=== PATIENT | male | born 1985 | race Caucasian/White ===

== ENCOUNTER 2017-10-08 15:23 | Emergency (ER) | payer OTHER ==
--- NOTE | 2017-10-08 15:51 | EDM.PDOC ---
ED HPI GENERAL MEDICAL PROBLEM - General Chief Complaint: Upper Extremity Injury/Pain Stated Complaint: NUMBNESS IN RT HAND Time Seen by Provider: 10/08/17 15:41 Source of Information: Reports: Patient History Limitations: Reports: No Limitations - History of Present Illness INITIAL COMMENTS - FREE TEXT/NARRATIVE: Patient is a 32-year-old male who presents to the ED with intermittent numbness to the right fourth and fifth fingers. This occurred earlier this morning about 10 AM when he was working on a computer. States that he developed some pain along the inner aspect of his right elbow with it laying on the chair/desk. Noted some discomfort along the medial aspect of the forearm that radiated down into his fingers. Symptoms have improved with only slight discomfort noted to the right upper arm. Denies hitting it, swelling, rash, and/or bruising. He has no history of similar symptoms. At times he has felt like his right hand is slightly colder than his left. He has no history of Raynaud's. At this point all symptoms have almost completely resolved. Denies any additional complaints. He has no additional past medical history and currently taking no medications. Surgical history none. Right Upper Arm Pain Score (Numeric/FACES): 1 - Related Data Allergies Allergy/AdvReac Type Severity Reaction Status Date / Time No Known Allergies Allergy Verified 10/08/17 15:31 Home Meds: Home Meds . [No Known Home Meds] 10/08/17 [History] Past Medical History - Past Health History Medical/Surgical History: Denies Medical/Surgical History Social & Family History - Tobacco Use Smoking Status *Q: Never Smoker - Caffeine Use Caffeine Use: Reports: Energy Drinks, Soda - Recreational Drug Use Recreational Drug Use: No Review of Systems - Review of Systems Review Of Systems: ROS reveals no pertinent complaints other than HPI. ED EXAM, GENERAL - Physical Exam Exam: See Below Exam Limited By: No Limitations General Appearance: Alert, WD/WN, No Apparent Distress Ears: Hearing Grossly Normal Nose: Normal Inspection Throat/Mouth: Normal Voice, No Airway Compromise Neck: Normal Inspection, Supple Respiratory/Chest: No Respiratory Distress, No Accessory Muscle Use Cardiovascular: Normal Peripheral Pulses, Regular Rate, Rhythm, No Murmur Peripheral Pulses: 4+: Radial (L), Radial (R) Extremities: Normal Inspection, Normal Range of Motion, Non-Tender, No Pedal Edema Neurological: Alert, Oriented, CN II-XII Intact, Normal Cognition, No Motor/ Sensory Deficits Psychiatric: Normal Affect, Normal Mood Skin Exam: Warm, Dry, Intact, Normal Color, No Rash Course - Vital Signs Last Recorded V/S: Last Vital Signs Temp 98.0 F 10/08/17 15:34 Pulse 65 10/08/17 15:34 Resp 20 10/08/17 15:34 BP 141/96 H 10/08/17 15:34 Pulse Ox 100 10/08/17 15:34 - Re-Assessments/Exams Free Text/Narrative Re-Assessment/Exam: Suspect cause of discomfort was secondary to resting his elbow on a hard surface causing entrapment of the ulnar nerve causing paresthesias to his right fifth finger. With evaluation in the ED symptoms are almost gone. He has some slight tingling noted the fourth and fifth finger. No weakness or motor deficits noted. No additional testing required. Discharge instructions as documented. Departure - Departure Time of Disposition: 15:49 Disposition: Home, Self-Care 01 Condition: Good Clinical Impression: Irritation of ulnar nerve Qualifiers: Laterality: right Qualified Code(s): G56.21 - Lesion of ulnar nerve, right upper limb - Discharge Information Referrals: PCP,Not In Area [Primary Care Provider] - Forms: ED Department Discharge Additional Instructions: Refrain from any activities that cause worsening discomfort. Monitor for any changes. Suspect this is all related to compression of the ulnar nerve at the elbow. Please follow up with your primary care provider if symptoms persist. He turned back to ED if he developed any new or worsening symptoms.
== END 2017-10-08 16:16 | disposition home or self-care (01) ==
LOC: JD.ED 15:23
DX: G56.21 Lesion of ulnar nerve, right upper limb (principal)
CPT/HCPCS: 99283

== ENCOUNTER 2017-11-12 06:20 | Emergency (ER) | payer OTHER ==
--- NOTE | 2017-11-12 07:27 | EDM.PDOC ---
ED HPI GENERAL MEDICAL PROBLEM - General Chief Complaint: Chest Pain Stated Complaint: chest pain Time Seen by Provider: 11/12/17 07:00 Source of Information: Reports: Patient History Limitations: Reports: No Limitations - History of Present Illness INITIAL COMMENTS - FREE TEXT/NARRATIVE: 32-year-old male presents the ED for evaluation of migratory anterior chest pains. Been going on for the last few days. Patient reports he is aware every heartbeat and has been so since high school. He seems to be quite anxious. Pains are described as mostly dull /aching pains and they will travel across the anterior chest and epigastrium at times. Denies cough or sputum production no fever or chills. No constant pain in the pains are fleeting. Cancer they're any worse with activity. He is a nonsmoker. Denies cough or sputum production. + 2 days he's noticed some pain in the posterior aspect of his right calf. This is raised concerns of possible DVT. 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 Is not using any street drugs. He can never localize where the pain is or make it worse by palpation his chest wall has had similar type problems several times in the past. No positive findings on investigations. ECG done this morning so sinus rhythm at 70/m there is a near Q-wave in V1 and V2 with RSR prime wave likely normal variant. Otherwise normal ECG. Patient reports she's had his thyroid function checked recently was no abnormalities identified. His diet isn't the best. But he has no history of diabetes. He usually doesn't take any medication even Advil. Onset: Gradual Onset Date: 11/10/17 Duration: Day(s):, Intermittent, Waxing/Waning Location: Reports: Chest (Anterior chest primarily no radiation through to his back.) Quality: Reports: Ache, Dull, Pressure. Denies: Sharp, Stabbing, Throbbing Severity: Mild Improves with: Reports: None Worsens with: Reports: None Context: Denies: Activity, Exercise, Lifting, Sick Contact, Trauma, Other Associated Symptoms: Reports: Chest Pain. Denies: No Other Symptoms, Confusion , Cough, cough w sputum, Diaphoresis (See history of present illness), Fever/ Chills, Headaches, Loss of Appetite, Malaise, Nausea/Vomiting, Rash, Seizure, Shortness of Breath, Syncope, Weakness Treatments RAVELER: Reports: Other (see below) (None.) Chest Pain Score (Numeric/FACES): 0 - Related Data Allergies Allergy/AdvReac Type Severity Reaction Status Date / Time No Known Allergies Allergy Verified 10/08/17 15:31 Home Meds: Home Meds . [No Known Home Meds] 10/08/17 [History] Past Medical History - Past Health History Medical/Surgical History: Denies Medical/Surgical History Cardiovascular History: Reports: Other (See Below) (Intermittent chest pains for many years.) Social & Family History - Tobacco Use Smoking Status *Q: Never Smoker - Caffeine Use Caffeine Use: Reports: Energy Drinks, Soda - Recreational Drug Use Recreational Drug Use: No - Living Situation & Occupation Living situation: Reports: Single Occupation: Employed ED ROS GENERAL - Review of Systems Review Of Systems: See Below Constitutional: Denies: Fever, Chills, Malaise, Weakness, Fatigue, Decreased Appetite, Weight Loss HEENT: Reports: No Symptoms Respiratory: Reports: No Symptoms. Denies: Shortness of Breath, Wheezing, Pleuritic Chest Pain, Cough, Sputum, Hemoptysis, Other Cardiovascular: Reports: Chest Pain (At the time of my assessment he had no chest pains.), Blood Pressure Problem (Elevated upon arrival at 165.08.). Denies: No Symptoms, Dyspnea on Exertion, Edema, Lightheadedness, Palpitations, PND, Syncope, Other Endocrine: Reports: No Symptoms GI/Abdominal: Reports: No Symptoms. Denies: Abdominal Pain, Anorexia, Black Stool, Bloody Stool, Diarrhea, Decreased Appetite, Flatus, Hematemesis, Hematochezia, Nausea, Stool Incontinence, Vomiting : Reports: No Symptoms Musculoskeletal: Reports: No Symptoms Skin: Reports: No Symptoms Neurological: Reports: No Symptoms Psychiatric: Reports: No Symptoms Hematologic/Lymphatic: Reports: No Symptoms Immunologic: Reports: No Symptoms ED EXAM, GENERAL - Physical Exam Exam: See Below Exam Limited By: No Limitations General Appearance: Alert, WD/WN, No Apparent Distress, Anxious Eye Exam: Bilateral Eye: Normal Fundi Throat/Mouth: Normal Lips, Normal Teeth, Normal Gums Head: Atraumatic, Normocephalic Neck: Normal Inspection, Supple, Non-Tender, Full Range of Motion. No: Limited Range of Motion, Lymphadenopathy (L) Respiratory/Chest: No Respiratory Distress, Lungs Clear, Normal Breath Sounds, No Accessory Muscle Use Cardiovascular: Normal Peripheral Pulses, Regular Rate, Rhythm, No Edema, No Gallop, No Murmur Peripheral Pulses: 3+: Posterior Tibial (L), Posterior Tibial (R), Dorsalis Pedis (L), Dorsalis Pedis (R) GI/Abdominal: Normal Bowel Sounds, Soft, Non-Tender, No Organomegaly, No Abnormal Bruit, No Mass, Pelvis Stable Back Exam: Normal Inspection, Full Range of Motion. No: CVA Tenderness (L), CVA Tenderness (R) Extremities: Normal Inspection, Normal Range of Motion, Non-Tender, No Pedal Edema, Normal Capillary Refill, Other (Particular attention paid to the right lower leg. It is nice flaccid with no signs of DVT or edema or localized pain. Homans sign is negative.) Neurological: Alert, Oriented, CN II-XII Intact, Normal Cognition, Normal Gait, Normal Reflexes, No Motor/Sensory Deficits Psychiatric: Normal Mood, Anxious Skin Exam: Warm, Dry, Intact, Normal Color, No Rash EKG INTERPRETATION EKG Date: 11/12/17 Time: 06:25 Rhythm: NSR Rate (Beats/Min): 70 [place]: Normal P-Wave: Present QRS: Other (RS are prime wave B1 B2 normal variant.) ST-T: Normal QT: Normal Course - Vital Signs Last Recorded V/S: Last Vital Signs Temp 36.1 C 11/12/17 06:23 Pulse 75 11/12/17 06:23 Resp 16 11/12/17 06:23 BP 165/108 H 11/12/17 06:23 Pulse Ox 100 11/12/17 06:23 - Orders/Labs/Meds Labs: Laboratory Tests 11/12/17 11/12/17 11/12/17 Range/Units 07:43 07:43 07:43 WBC 8.07 (4.23-9.07) K/mm3 RBC 5.38 (4.63-6.08) M/mm3 Hgb 15.9 (13.7-17.5) gm/L Hct 44.6 (40.1-51.0) % MCV 82.9 (79.0-92.2) fl MCH 29.6 (25.7-32.2) pg MCHC 35.7 H (32.2-35.5) g/dl RDW Std Deviation 37.7 (35.1-43.9) fL Plt Count 194 (163-337) K/mm3 MPV 9.5 (9.4-12.3) fl Neutrophils % (Manual) 41 (40-60) % Band Neutrophils % 0 (0-10) % Lymphocytes % (Manual) 53 H (20-40) % Atypical Lymphs % 0 % Monocytes % (Manual) 5 (2-10) % Eosinophils % (Manual) 1 (0.8-7.0) % Basophils % (Manual) 0 L (0.2-1.2) Platelet Estimate Adequate RBC Morph Comment Normal D-Dimer, Quantitative < 0.19 L (0.19-0.50) mg/L Sodium 141 (136-145) mEq/L Potassium 3.5 (3.5-5.1) mEq/L Chloride 103 (98-107) mEq/L Carbon Dioxide 27 (21-32) mEq/L Anion Gap 14.5 (5-15) BUN 19 H (7-18) mg/dL Creatinine 1.2 (0.7-1.3) mg/dL Est Cr Clr Drug Dosing 98.80 mL/min Estimated GFR (MDRD) > 60 (>60) mL/min BUN/Creatinine Ratio 15.8 (14-18) Glucose 86 (74-106) mg/dL Calcium 9.0 (8.5-10.1) mg/dL Magnesium 1.7 L (1.8-2.4) mg/dl Total Bilirubin 1.2 H (0.2-1.0) mg/dL AST 22 (15-37) U/L ALT 29 (16-63) U/L Alkaline Phosphatase 66 (46-116) U/L CK-MB (CK-2) < 0.5 (0-3.6) ng/ml Troponin I < 0.017 (0.00-0.056) ng/mL C-Reactive Protein < 0.2 (<1.0) mg/dL Total Protein 7.6 (6.4-8.2) g/dl Albumin 4.3 (3.4-5.0) g/dl Globulin 3.3 gm/dL Albumin/Globulin Ratio 1.3 (1-2) Meds: Medications Discontinued Medications Generic Name Dose Route Start Last Admin Trade Name Jay Jay PRN Reason Stop Dose Admin Dextrose/Sodium Chloride 1,000 mls @ 250 mls/hr 11/12/17 07:30 11/12/17 07:43 Dextrose 5%-Normal Saline IV 250 mls/hr ASDI[facility]ED [facility] Administration - Radiology Interpretation Free Text/Narrative:: 32-year-old male presents the ED with migratory anterior chest pressure aching discomfort. It settles in no place and is not made worse by palpation. Worse as of late so she with development of right mid leg pain posteriorly in his calf and behind his knee wording worrisome for a DVT. Clinically there is no evidence of a DVT. His O2 sats are normal at 100% he is quite anxious. BP is 165 /108 initially. It has come down to 154/92 now. No physical findings that were positive. Normal ECG. Routine labs will be carried out. This will include a d- dimer. Most of his problems I believe are anxiety related. He appears to be relatively high strung. - Re-Assessments/Exams Free Text/Narrative Re-Assessment/Exam: 11/12/17 07:55 portable chest x-ray is completely normal. 11/12/17 08:44 Labs are back showing a white count of 8.07 with a right shift of 53% lymphocytes and 41% neutrophils. Hemoglobin is 15.9 with hematocrit of 44.6. Blood count is normal 194,000. D-dimer is less than 0.19. Sodium 141 with potassium of 3.5. Chloride 13 bicarbonate 27. And a gap is 14.5 B1 is 19. Creatinine is 1.2. EGFR is greater than 60. Glucose is 86 calcium 9.0. Magnesium low normal at 1.7. Total bilirubin 1.2. Liver function normal. Cardiac markers normal. C-reactive protein is less than 0.2. 11/12/17 08:55 patient was reassured about the findings of his labs. The right shift suggest an underlying viral in action but he has no fever or chills. Advised about his magnesium being a bit on the low side he admits he hasn't eating the best. He does have a multivitamin that contains magnesium and with him. And he will start this again which would return his magnesium levels to normal. Otherwise he was reassured he does not have a blood clot in his leg or to account for his anterior chest pains. He is under good deal of stress working 3 weeks on and one-week off and then lives in [place]. This is creating a bit of a drain on his lifestyle in coping skills. Departure - Departure Time of Disposition: 08:57 Disposition: Home, Self-Care 01 Condition: Fair Clinical Impression: Non-cardiac chest pain Muscle strain of right lower extremity Qualifiers: Encounter type: initial encounter Qualified Code(s): S86.911A - Strain of unspecified muscle(s) and tendon(s) at lower leg level, right leg, initial encounter Instructions: Chest Wall Pain, [id number] Referrals: PCP,Not In Area [Primary Care Provider] - Forms: ED Department Discharge Additional Instructions: Evaluation the emergency room today in regards to aching chest discomfort migratory a bit in terms of being both on the right left side etc. No associated cough or signs or symptoms of infection. Lab work did not show any sign of blood clot in the lung. No blood clot in the leg either. He does not show any evidence of heart related illness. Chest x-ray was clear heart tracing is normal. Cardiac markers were negative for any signs of heart involvement. The only positive finding was a low magnesium level at 1.7 and a bit of a right shift in your blood work suggesting an underlying viral infection. Lymphocyte count is usually around 35% and yours was in the 50s. Active signs of infection at this point time. Suggest resuming your multivitamin which contains magnesium as a supplement to restore your magnesium level to normal today and get back on a regular diet the contains a fair amount of meat. At this time no serious problem's were identified. Continue normal level activity as before.
[2017-11-12] MEDS ORDERED: Dextrose 5%-0.9% NaCl 1,000 ML IV SCH (07:30)
--- NOTE | 2017-11-13 06:15 | CR ---
Chest: Portable view of the chest was obtained. Comparison: No prior study. Heart size and mediastinum are normal. Small nodule is noted within the upper right chest. Lungs otherwise are clear. Bony structures are grossly intact. Impression: 1. Small nodule within the right upper chest. Noncontrast chest CT could be considered to see if this is calcified and represents a granuloma. 2. Nothing acute is otherwise seen on portable chest x-ray. Diagnostic code #9
== END 2017-11-12 09:15 | disposition home or self-care (01) ==
LOC: JD.ED 06:20
DX: R07.89 Other chest pain (principal); S86.911A Strain of unspecified muscle(s) and tendon(s) at lower leg level, right leg, initial encounter; X58.XXXA Exposure to other specified factors, initial encounter
CPT/HCPCS: 36415; 71045; 80053; 82553; 83735; 84484; 85007; 85027; 85379; 86140; 96360; 99285; J7042; 93010; 99284-25

== ENCOUNTER 2019-10-29 15:13 | Emergency (ER) | payer OTHER ==
--- NOTE | 2019-10-29 16:00 | EDM.PDOC ---
<VeraZev Shanice - Last Filed: 10/29/19 15:51> ED HPI GENERAL MEDICAL PROBLEM - General Chief Complaint: Chest Pain Stated Complaint: CHEST PRESSURE X 1 WEEK + Time Seen by Provider: 10/29/19 15:27 Source of Information: Reports: Patient History Limitations: Reports: No Limitations - History of Present Illness INITIAL COMMENTS - FREE TEXT/NARRATIVE: Abhishek is a 34 YO male that presents to the ED for aching chest pain. Pain has been intermittent over the past week but episodes are becoming more frequent and longer in duration. No specific events are known to incite or alleviate pain. When asked to rate pain, he described it as minimal and "more of a nuisance." There have been similar episodes in the last year for which he sought medical treatment but didn't receive a definitive diagnoses for the pain. Denies dizziness, loss of consciousness, diaphoresis, nausea, vomiting, shortness of breath, radiation of pain. Onset: Gradual Onset Date: 10/22/19 Duration: Day(s): Location: Reports: Chest Quality: Reports: Ache, Dull Severity: Mild Improves with: Reports: None Worsens with: Reports: None Associated Symptoms: Reports: No Other Symptoms Chest Pain Score (Numeric/FACES): 2 - Related Data Allergies Allergy/AdvReac Type Severity Reaction Status Date / Time No Known Allergies Allergy Verified 10/29/19 15:25 Home Meds: Home Meds . [No Known Home Meds] 10/08/17 [History] Past Medical History - Past Health History Medical/Surgical History: Denies Medical/Surgical History Cardiovascular History: Reports: Other (See Below) (Intermittent chest pains for many years.) Social & Family History - Tobacco Use Smoking Status *Q: Never Smoker - Caffeine Use Caffeine Use: Reports: Energy Drinks, Soda - Living Situation & Occupation Living situation: Reports: Single Occupation: Employed ED ROS GENERAL - Review of Systems Review Of Systems: See Below Constitutional: Denies: Diaphoresis Respiratory: Denies: Shortness of Breath Cardiovascular: Reports: Chest Pain, Blood Pressure Problem (History of HTN. P rescribed lisinopril which he has not taken in 6-7 months. ). Denies: Dyspnea on Exertion, Lightheadedness, Orthopnea, Palpitations, Syncope GI/Abdominal: Denies: Nausea, Vomiting Skin: Denies: Diaphoresis Neurological: Reports: Headache (Describes period of dull pain that radiates up his neck to top of his head during times of stress.) Psychiatric: Denies: Anxiety, Depression ED EXAM, GENERAL - Physical Exam Exam: See Below Exam Limited By: No Limitations General Appearance: Alert, No Apparent Distress Eye Exam: Bilateral Eye: PERRL Head: Atraumatic, Normocephalic Respiratory/Chest: No Respiratory Distress, Lungs Clear, Normal Breath Sounds, Chest Non-Tender Cardiovascular: Regular Rate, Rhythm, No Gallop, No Murmur, No Rub Neurological: Alert, Oriented Skin Exam: Warm, Dry, Normal Color Departure - Departure Disposition: Home, Self-Care 01 Clinical Impression: Non-cardiac chest pain Instructions: Nonspecific Chest Pain, Adult, [id number] Referrals: PCP,None [Primary Care Provider] - Forms: ED Department Discharge Additional Instructions: You were seen in the emergency department today for intermittent episodes of chest discomfort. Your work-up included blood work, an EKG of your heart, and a chest x-ray. Your work-up was found to be normal. You are having a heart attack and you do not have a blood clot in your lungs. As we discussed, possible causes of chest discomfort similar to what you describe are anxiety or gastroesophageal reflux disease. Your blood pressure was elevated at 151/100 today. Recommend that you begin taking your lisinopril daily. Follow-up with your primary care doctor once you return to [place] for the stress test and echocardiogram that is currently scheduled. If you should experience any new or worsening symptoms of concern, please not hesitate to return to the emergency department. Sepsis Event Note (ED) - Evaluation Sepsis Screening Result: No Definite Risk <Gracia Apodaca - Last Filed: 10/29/19 18:00> EKG INTERPRETATION EKG Date: 10/29/19 Time: 16:10 Rhythm: NSR Rate (Beats/Min): 55 [place]: Normal P-Wave: Present QRS: Normal ST-T: Normal QT: Normal Comparison: NA - No Prior EKG EKG Interpretation Comments: Sinus bradycardia at 55/min Q waves V1 and V2-consider old anterior wall NV Early R wave transition-consider septal hypertrophy Consider left atrial hypertrophy EKG interpreted by Dr. Tena RAVI. Course - Vital Signs Last Recorded V/S: Last Vital Signs Temp 97.8 F 10/29/19 15:23 Pulse 61 10/29/19 15:23 Resp 16 10/29/19 15:23 BP 151/100 H 10/29/19 15:23 Pulse Ox 100 10/29/19 15:23 - Orders/Labs/Meds Orders: Active Orders 24 hr Category Date Time Status EKG Documentation Completion [RC] STAT Care 10/29/19 15:41 Active Labs: Laboratory Tests 10/29/19 10/29/19 10/29/19 Range/Units 16:25 16:25 16:25 WBC 6.17 (4.23-9.07) K/mm3 RBC 4.79 (4.63-6.08) M/mm3 Hgb 14.2 D (13.7-17.5) gm/dl Hct 41.7 (40.1-51.0) % MCV 87.1 D (79.0-92.2) fl MCH 29.6 (25.7-32.2) pg MCHC 34.1 (32.2-35.5) g/dl RDW Std Deviation 39.8 (35.1-43.9) fL Plt Count 199 (163-337) K/mm3 MPV 9.9 (9.4-12.3) fl Neut % (Auto) 59.4 (34.0-67.9) % Lymph % (Auto) 31.0 (21.8-53.1) % [place] % (Auto) 8.1 (5.3-12.2) % Eos % (Auto) 1.0 (0.8-7.0) Baso % (Auto) 0.3 (0.1-1.2) % Neut # (Auto) 3.67 (1.78-5.38) K/mm3 Lymph # (Auto) 1.91 (1.32-3.57) K/mm3 [place] # (Auto) 0.50 (0.30-0.82) K/mm3 Eos # (Auto) 0.06 (0.04-0.54) K/mm3 Baso # (Auto) 0.02 (0.01-0.08) K/mm3 D-Dimer, Quantitative 0.36 (0.19-0.50) mg/L Sodium 142 (136-145) mEq/L Potassium 3.6 (3.5-5.1) mEq/L Chloride 105 (98-107) mEq/L Carbon Dioxide 32 (21-32) mEq/L Anion Gap 8.6 (5-15) BUN 15 (7-18) mg/dL Creatinine 1.2 (0.7-1.3) mg/dL Est Cr Clr Drug Dosing 97.00 mL/min Estimated GFR (MDRD) > 60 (>60) mL/min BUN/Creatinine Ratio 12.5 L (14-18) Glucose 113 H (74-106) mg/dL Calcium 9.4 (8.5-10.1) mg/dL Total Bilirubin 1.7 H (0.2-1.0) mg/dL AST 22 (15-37) U/L ALT 21 (16-63) U/L Alkaline Phosphatase 56 (46-116) U/L Troponin I < 0.017 (0.00-0.056) ng/mL C-Reactive Protein 0.3 (<1.0) mg/dL Total Protein 7.0 (6.4-8.2) g/dl Albumin 4.1 (3.4-5.0) g/dl Globulin 2.9 gm/dL Albumin/Globulin Ratio 1.4 (1-2) - Re-Assessments/Exams Free Text/Narrative Re-Assessment/Exam: I agree with the HPI as documented by [employer] student. I also interviewed the patient. He describes intermittent, tension type headaches, however headache is not present at this time. He describes intermittent "chest discomfort "that comes and goes. This is present minimally at this time. He states he has had a work-up for it in the past and nothing was found. Patient initially did not want to stay to have lab work done and requested that we draw blood and call him with results. Explained to him that in the emergency department, we need to rule out emergencies which in this situation would be a cardiac event or possible PE. He was given the option to refuse lab work-up, however he decided to stay and complete the work-up. I have ordered a CBC, CMP, troponin, d-dimer, EKG, 2 view chest x-ray. He has picked up his lisinopril and plans to take it today. 10/29/19 17:34 Patient's hematology was grossly unremarkable. D-dimer was negative. Troponin was negative. EKG and chest x-ray were also both normal. Discussed possibilities that could cause chest discomfort similar to this such as anxiety or acid reflux. Patient states this has been going on for quite a while intermittently. He does have a stress test and echocardiogram scheduled when he returns home to [place] in a few weeks. We will discharge her home with instructions to take his lisinopril as prescribed. Return to the ER for worsening symptoms. Discharge instructions as documented. Departure - Departure Time of Disposition: 17:34 Condition: Good Sepsis Event Note (ED) - Focused Exam Vital Signs: Vital Signs Temp Pulse Resp BP Pulse Ox 10/29/19 15:23 97.8 F 61 16 151/100 H 100 - My Orders Last 24 Hours: My Active Orders 10/29/19 15:41 EKG Documentation Completion [RC] STAT - Assessment/Plan Last 24 Hours: My Active Orders 10/29/19 15:41 EKG Documentation Completion [RC] STAT
--- NOTE | 2019-10-29 16:14 | CR ---
Chest: 2 views of the chest were obtained. Comparison: Prior chest x-ray of 11/12/17. Heart size and mediastinum are normal. Lungs are clear with no acute parenchymal change. Bony structures are unremarkable. Impression: 1. Nothing acute is appreciated on 2 view chest x-ray. Diagnostic code #1 This report was dictated in MDT
== END 2019-10-29 17:45 | disposition home or self-care (01) ==
LOC: JD.ED 15:13
DX: R07.89 Other chest pain (principal); R51 Headache
CPT/HCPCS: 36415; 71046; 71046-26; 80053; 84484; 85025; 85379; 86140; 93005; 99285-25